=== PATIENT | male | born 1955 | race Caucasian/White ===

== ENCOUNTER 2020-02-27 20:24 | Emergency (ER) | payer OTHER ==
[~2020-02-27] VITALS: Ht 165.1 cm; Wt 69.0 kg
[2020-02-27] MEDS ORDERED: HALOPERIDOL LACTATE 5MG/ML VIAL IM STA (20:57)
[2020-02-27 21:47] LABS: BASOPHILS % 0.5 % (0.0-2.0); HEMATOCRIT. 39.9 % (42.0-52.0); HEMOGLOBIN. 13.6 g/dL (14.0-18.0); LYMPHOCYTES % 38.5 % (20.0-50.0); MEAN CORPUSCULAR HEMOGLOBIN 32.5 pg (28.0-32.0); MEAN CORPUSCULAR VOLUME 94.9 fL (80.0-94.0); MEAN PLATELET VOLUME 7.7 fl (7.4-10.4); MONOCYTES % 5.9 % (2.0-8.0); NEUTROPHILS % 54.1 % (40.0-76.0); PLATELET 220 x1000/uL (130-400); RED CELL DISTRIBUTION WIDTH 14.7 % (11.6-14.6)
[2020-02-27 21:53] LABS: CHLORIDE 107 mEq/L (98-107)
[2020-02-27 22:18] LABS: ETHANOL BLOOD 323 mg/dL
[2020-02-28 08:00] VITALS: BP 155/69
== END 2020-02-28 09:05 | disposition home or self-care (01) ==
LOC: ER 20:24
DX: F10.229 Alcohol dependence with intoxication, unspecified (principal); R07.89 Other chest pain; R45.851 Suicidal ideations; I10 Essential (primary) hypertension; N40.0 Benign prostatic hyperplasia without lower urinary tract symptoms; Y90.8 Blood alcohol level of 240 mg/100 ml or more
CPT/HCPCS: 36415; 71045; 80053; 80320; 84484; 85025; 93005; 96372; 99285; J1630; G0480